=== PATIENT | female | born 1975 | race African-American/Black ===

== ENCOUNTER 2022-07-07 10:06 | Outpatient (CLI) | payer BC | END 2022-07-07 10:07 | disposition home or self-care (01) | LOC: BICMAMMO 10:06 | PROVIDERS: ATTEND Obstetrics & Gynecology | DX: R92.8 Other abnormal and inconclusive findings on diagnostic imaging of breast (principal); N63.10 Unspecified lump in the right breast, unspecified quadrant | CPT/HCPCS: 77066; G0279 ==

== ENCOUNTER → 2022-07-13 | Day surgery (SDC) | payer BC | END | disposition home or self-care (01) | LOC: BICULT 12:25 | PROVIDERS: ATTEND Obstetrics & Gynecology | PROC: 0H9T3ZX Drainage of Right Breast, Percutaneous Approach, Diagnostic (ICD-10-PCS; principal; 2022-07-13) | DX: D24.1 Benign neoplasm of right breast (principal); N60.21 Fibroadenosis of right breast | CPT/HCPCS: 19083; 88305 ==